=== PATIENT | female | born 1950 | race African-American/Black ===

== ENCOUNTER 2020-03-15 13:23 | Inpatient (IN) | payer MEDICARE, OTHER ==
[~2020-03-15] VITALS: Ht 152.4 cm; Wt 57.6 kg
[2020-03-15] MEDS ORDERED: DONE5TAB34 PO (13:56)
[2020-03-15] MEDS ORDERED: VALP250S4 PO (13:56)
[2020-03-15] MEDS ORDERED: LORA-259 PO (13:56)
[2020-03-15] MEDS ORDERED: DORZ10DR13 EACHEYE (13:56)
[2020-03-15] MEDS ORDERED: ASCO-352 PO (13:56)
[2020-03-15] MEDS ORDERED: FERR325T23 PO (13:56)
[2020-03-15] MEDS ORDERED: ACET-868 PO (13:56)
[2020-03-15] MEDS ORDERED: MULT-24 PO (13:56)
[2020-03-15] MEDS ORDERED: LATA2.5D7 EACHEYE (13:56)
--- NOTE | 2020-03-15 14:12 | NUR ---
Patient alert to name only patient rectal temp 99.9 ,hooked in the monitor ,lab draw ,ekg
[2020-03-15 14:28] LABS: ALANINE AMINOTRANSFERASE 24 U/L (12-78); ALBUMIN 2.3 g/dL (3.4-5.0); ALKALINE PHOSPHATASE 92 U/L (46-116); ASPARTATE AMINOTRANSFERASE 24 U/L (15-37); BILIRUBIN,DIRECT 0.1 mg/dL (0.0-0.2); BILIRUBIN,TOTAL 0.3 mg/dL (0.2-1.0); CARBON DIOXIDE 30 mmol/L (21-32); CHLORIDE 122 mmol/L (98-107); CREATININE 4.3 mg/dL (0.6-1.3); GLUCOSE 197 mg/dL (74-106); POTASSIUM 4.4 mmol/L (3.5-5.1); TOTAL PROTEIN, SERUM 7.7 g/dL (6.4-8.2)
[2020-03-15 14:30] LABS: SODIUM SERUM 165 mmol/L (136-145); UREA NITROGEN, BLOOD 98 mg/dL (7-18)
[2020-03-15 14:32] LABS: BASOPHILS % (AUTO) 0.2 % (0.0-2.0); HEMATOCRIT 41 % (33-45); HEMOGLOBIN 12.9 g/dL (11.5-14.8); LYMPHOCYTES # (AUTO) 2.2 /CMM (0.8-4.8); LYMPHOCYTES % (AUTO) 14.8 % (20.0-44.0); MEAN CORPUSCULAR HGB CONC 31 g/dl (31.0-36.0); MEAN CORPUSCULAR VOLUME 97 fL (82-100); MONOCYTES # (AUTO) 0.8 /CMM (0.1-1.30); MONOCYTES % (AUTO) 5.2 % (2.0-12.0); NEUTROPHILS # (AUTO) 11.8 /CMM (1.8-8.9); NEUTROPHILS % (AUTO) 79.8 % (43.0-81.0); PLATELET COUNT (AUTO) 133 /CMM (150-450); RED BLOOD CELL COUNT(AUTO) 4.28 MIL/uL (4.0-5.2); WHITE BLOOD COUNT (AUTO) 14.8 K/uL (4.3-11.0)
[2020-03-15] MEDS ORDERED: CEFTRIAXONE 1GM BAG (ER ONLY) 50 ML IV ONE (14:59)
[2020-03-15] MEDS ORDERED: IV NS 0.9% 1,000 ML BAG IV ONE (15:00)
[2020-03-15] MEDS ORDERED: CEFTRIAXONE 1GM BAG (ER ONLY) 1 GM/50 ML PIGGYBACK IV ONE (15:00)
--- NOTE | 2020-03-15 15:43 | NUR ---
Covid swab obtained and send to lab
[2020-03-15 16:30] LABS: APPEARANCE,URINE CLEAR (CLEAR); BILIRUBIN,URINE NEGATIVE (NEGATIVE); BLOOD, URINE NEGATIVE Ery/uL (NEGATIVE); COLOR,URINE YELLOW (YELLOW); KETONES,URINE TRACE (NEGATIVE); LEUKOCYTE ESTERASE ,URINE NEGATIVE (NEGATIVE); NITRITE, URINE NEGATIVE (NEGATIVE); PROTEIN,URINE NEGATIVE (NEGATIVE); UGLUCOSE NEGATIVE (NEGATIVE); UROBILINOGEN,URINE 0.2 EU/dL (0.2)
[2020-03-15 16:32] LABS: ALBUMIN 1.9 g/dL (3.4-5.0); BILIRUBIN,DIRECT 0.1 mg/dL (0.0-0.2); BILIRUBIN,TOTAL 0.2 mg/dL (0.2-1.0); TOTAL PROTEIN, SERUM 6.5 g/dL (6.4-8.2)
[2020-03-15 16:37] LABS: BACTERIA,URINE RARE /HPF (None Seen); HYALINE CASTS, URINE Few /LPF (None Seen); MUCUS,URINE Few /LPF (None Seen); RBC,URINE 0-2 /HPF (0-2); SQUAMOUS EPITHELIAL CELL,UR 0-2 /HPF (None Seen); WBC,URINE 0-2 /HPF (0-3)
[2020-03-15 16:38] LABS: URINE AMORPHOUS URATE Moderate /HPF (None Seen)
[2020-03-15] MEDS ORDERED: Z GUARD REMEDY 2 OZ OINT TP PRN (17:30)
[2020-03-15] MEDS ORDERED: HYDROCODONE/APAP 5/325MG TABLET PO PRN (17:30)
[2020-03-15] MEDS ORDERED: ACETAMINOPHEN 325 MG TABLET PO PRN (17:30)
[2020-03-15] MEDS ORDERED: MAG HYDROX/AL HYDROX/SIMETH 30 ML UDC PO PRN (17:30)
[2020-03-15] MEDS ORDERED: ONDANSETRON HCL/PF 4 MG/2 ML VIAL IVP PRN (17:30)
[2020-03-15] MEDS ORDERED: MAGNESIUM HYDROXIDE 30 ML UDC PO PRN (17:30)
--- NOTE | 2020-03-15 17:33 | NUR ---
Patient alert to name only non able to say yes ,total care vitals taken and filesd
--- NOTE | 2020-03-15 19:58 | NUR ---
PT NOTED ASLEEP, TRIED SPEAKING TO PT. SHE STATED HER NAME BUT DID NOT WANT TO SPEAK.
--- NOTE | 2020-03-15 20:03 | NUR ---
ROOM ASSIGNMENT: [id number]- TELE
--- NOTE | 2020-03-15 20:15 | NUR ---
CALLED TO GIVE REPORT. WILL CALL BACK LATER.
--- NOTE | 2020-03-15 20:27 | NUR ---
CALLED FOR REPORT AGAIN, BED UNAVAILABLE.
--- NOTE | 2020-03-15 21:05 | NUR ---
PT ASLEEP, NOTED SAT 92% RA. PLACED ON 2L NC SAT 97%
--- NOTE | 2020-03-15 22:38 | NUR ---
REPORT GIVEN TO JC MCGINNIS FOR SELINA
--- NOTE | 2020-03-15 23:26 | NUR ---
AWAITING FOR BED TO BE CLEANED IN ORDER TO TRANSFER PT.
--- NOTE | 2020-03-16 00:34 | NUR ---
PT TRANSFERED PER ACLS PROTOCOL.
--- NOTE | 2020-03-16 00:45 | NUR ---
ROCKET TEST FIRE WORKER NOTES RECEIVED PT VIA S3Bubble. A/O X1. ON RA, NO SOB/ ACUTE RESPIRATORY DISTRESS NOTED. DENIES ANY PAIN AT THE MOMENT. IV IN L AC# 18G IS PATENT AND INTACT. PT ORIENTED TO ROOM. BED IS IN LOWEST LOCKED POSITION WITH SIDE RAILS UP X3, SEMI FOWLERS. CALL LIGHT IS WITHIN REACH. WILL CONTINUE TO MONITOR. PATIENT. Addendum: 03/16/20 at 0259 by JC GIBSON RN VITAL SIGNS UPON ADMISSION BP 110/ 76 HR 107 RR 18 TEMP 98.2 O2 SAT 92% (PT HAS HX OF COPD)
[2020-03-16] MEDS: IV 1/2NS 1000 ML 1,000 ML IV SCH ×2 (03:45→03:46)
[2020-03-16 04:00] VITALS: BP 106/62
--- NOTE | 2020-03-16 06:45 | NUR ---
NOZZLE TENDER CLOSE NOTES PATIENT IS LAYING IN BED. A/O X1-2. ON RA, NO SOB/ ACUTE RESPIRATORY DISTRESS NOTED. TELE MONITOR READING ST, 107. IV IN L AC #18G IS PATENT AND INTACT RUNNING 1/2 NS @ 100 MLS/HR. VELASQUEZ CATHETER IN PLACE, 350 ML OUTPUT. APPEARS COMFORTABLE/ NO COMPLAINTS OF PAIN AT THE MOMENT. BED IS IN LOWEST LOCKED POSITION WITH SIDE RAILS UP X3, SEMI FOWLERS. CALL LIGHT IS WITHIN REACH. WILL ENDORSE TO AM NURSE.
[2020-03-16 08:00] VITALS: BP 106/80
[2020-03-16] MEDS: CEFTRIAXONE 1 G in IV D5W 50 ML IV SCH (09:06)
[2020-03-16 09:25] LABS: CARBON DIOXIDE 26 mmol/L (21-32); CREATININE 2.6 mg/dL (0.6-1.3); GLUCOSE 163 mg/dL (74-106); MAGNESIUM 3.2 mg/dL (1.8-2.4); PHOSPHORUS 3.3 mg/dL (2.5-4.9); POTASSIUM 4.5 mmol/L (3.5-5.1)
[2020-03-16 09:30] LABS: BASOPHILS % (AUTO) 0.1 % (0.0-2.0); EOSINOPHILS % (AUTO) 0.1 % (0.0-6.0); HEMATOCRIT 36 % (33-45); HEMOGLOBIN 10.9 g/dL (11.5-14.8); LYMPHOCYTES # (AUTO) 1.1 /CMM (0.8-4.8); LYMPHOCYTES % (AUTO) 9.9 % (20.0-44.0); MEAN CORPUSCULAR HGB CONC 30 g/dl (31.0-36.0); MEAN CORPUSCULAR VOLUME 101 fL (82-100); MONOCYTES # (AUTO) 0.5 /CMM (0.1-1.30); MONOCYTES % (AUTO) 4.7 % (2.0-12.0); NEUTROPHILS # (AUTO) 9.2 /CMM (1.8-8.9); NEUTROPHILS % (AUTO) 85.2 % (43.0-81.0); PLATELET COUNT (AUTO) 124 /CMM (150-450); RED BLOOD CELL COUNT(AUTO) 3.54 MIL/uL (4.0-5.2); WHITE BLOOD COUNT (AUTO) 10.8 K/uL (4.3-11.0)
[2020-03-16] MEDS ORDERED: IV 1/2NS 1000 ML 1,000 ML IV PRN (09:30)
[2020-03-16 09:35] LABS: CHLORIDE 128 mmol/L (98-107); SODIUM SERUM 165 mmol/L (136-145); UREA NITROGEN, BLOOD 81 mg/dL (7-18)
--- NOTE | 2020-03-16 10:10 | NUR ---
RN NOTE DR GARCIA IS MADE AWARE OF PATIENT`S SODIUM LEVEL OF 165 AND THAT THE PATIENT IS ON 0.45 NS AT 100ML/HR. PER MD NO NEW ORDERS.
[2020-03-16] MEDS: TIMOLOL MAL/DORZOLAM HCL OPHTH 10 ML BOTTLE EACHEYE SCH ×2 (10:15→17:48)
[2020-03-16] MEDS: LATANOPROST EYE DROP 0.005% 2.5 ML BOTTLE EACHEYE SCH ×2 (10:15→21:40)
[2020-03-16] MEDS: VALPROIC ACID 250 MG/5 ML UDC PO SCH (10:16)
--- NOTE | 2020-03-16 12:06 | NUR ---
RN NOTE DR GARCIA IS MADE AWARE OF CL LEVEL OF 128, BUN 81, CREA 2.6 AND MG 3.2. PER MD NO NEW ORDERS. ALSO, PER MD NEPHROLOGY IS ON THE CASE.
[2020-03-16] MEDS: IV D5W 1,000 ML IV SCH ×2 (14:18→23:31)
--- NOTE | 2020-03-16 18:52 | NUR ---
RN NOTE THE PATIENT IS ALERT AND ORIENTED TO SELF. MUMBLES WORDS. THE PATIENT IS IN ROOM AT AND 96%. RESPIRATION REGULAR AND UNLABORED. NO MANIFESTATION OF DISTRESS NOTED. LAC G 18 PATENT AND D5W INFUSING AT 100ML/HR. NO S/S INFILTRATION NOTED. BED LOW AND LOCKED. SIDE RAILS UP X3. CALL LIGHT WITHIN REACH. WILL ENDORSE TO SUPERVISOR HEAT TREATING.
--- NOTE | 2020-03-16 19:30 | NUR ---
POLISHER IMPLANT OPENING NOTES RECEIVED PATIENT IN BED ALERT AND ORIENTED X 1. BREATHING REGULAR AND UNLABORED ON ROOM AIR. LEFT AC G18 IV LINE INTACT AND PATENT, INFUSING WELL WITH NO BLEEDING OR S/S OF INFILTRATION NOTED. ON CARDIAC MONITORING WITH NSR AT 88bpm. NO S/S OF PAIN/DISCOMFORT NOTED AT THIS TIME. BED LOW AND LOCKED ON SEMI FOWLERS POSITION, CALL LIGHT IN REACH. BED ALARM ON. WILL CONTINUE TO MONITOR.
[2020-03-16 20:00] VITALS: BP 104/57
--- NOTE | 2020-03-16 20:00 | NUR ---
CORPORATE JOB TITLES NOTES SPO2 90% ON ROOM AIR, PLACED ON OXYGEN AT 2L/MIN VIA NASAL CANNULA. SPO2 INCREASED TO 97%
[2020-03-17] VITALS: BP 101/54
[2020-03-17 04:00] VITALS: BP 102/63
--- NOTE | 2020-03-17 05:40 | NUR ---
SHIFT MGR NOTES COVID 19 RESULT NEGATIVE, TRANSFERRED TO MS-TELE FLOOR ROOM 326-2 VIA ACLS. REMAINED ALERT AND ORIENTED X 1-2. AFEBRILE WITH NO S/S OF DISTRESS OBSERVED. REPORT GIVEN TO LESLIE MCGINNIS FOR CONTINUITY OF CARE.
--- NOTE | 2020-03-17 05:50 | NUR ---
TELE/RN OPENING NOTES PATIENT TRANSFERRED FROM MS 2. PATIENT SUSTAINED NO INJURIES DURING TRANSFER. PATIENT IS ALERT AND ORIENTED X 1. PATIENT IS ON 2L OF OXYGEN TOLERATING WELL. NO SIGNS OF SOB OR RESPIRATORY DISTRESS NOTED. BREATHING IS EVEN AND UNLABORED. PATIENT SKIN IN INTACT. PATIENT HAS LEFT AC #18G RUNNING D5W AT 100 CC/HR. PATIENT HAS VELASQUEZ CATH IN PLACE DRAINED OUR 800 CC. PATIENT IS STABLE. PATIENT IS PLACED IN COMFORTABLE POSITION. SAFETY MEASURES ARE IN PLACE, BED IS LOCKED AND PLACED IN THE LOW POSITION, SIDE RAILS UP X 3. CALL LIGHT IS WITHIN REACH. WILL CONTINUE TO MONITOR.
--- NOTE | 2020-03-17 06:55 | NUR ---
TELE/RN CLOSING NOTES PATIENT RESTING IN BED. PATIENT IS ALERT AND ORIENTED X 1-2. PATIENT IS ON 2L OF OXYGEN TOLERATING WELL. NO SIGNS OF SOB OR RESPIRATORY DISTRESS NOTED. BREATHING IS EVEN AND UNLABORED. PATIENT HAS LEFT AC #18G RUNNING D5W AT 100 CC/HR. PATIENT HAS VELASQUEZ CATH IN PLACE DRAINED OUT 800 CC. PATIENT NEEDS HAVE BEEN MET. SAFETY MEASURES ARE IN PLACE, BED IS LOCKED AND PLACED IN THE LOW POSITION, SIDE RAILS UP X 3. CALL LIGHT IS WITHIN REACH. WILL ENDORSE TO DAY SHIFT.
[2020-03-17 07:45] LABS: BASOPHILS % (AUTO) 0.2 % (0.0-2.0); EOSINOPHILS % (AUTO) 0.3 % (0.0-6.0); HEMATOCRIT 32 % (33-45); HEMOGLOBIN 10.1 g/dL (11.5-14.8); LYMPHOCYTES # (AUTO) 1.5 /CMM (0.8-4.8); LYMPHOCYTES % (AUTO) 13.6 % (20.0-44.0); MEAN CORPUSCULAR HGB CONC 31 g/dl (31.0-36.0); MEAN CORPUSCULAR VOLUME 96 fL (82-100); MONOCYTES # (AUTO) 0.7 /CMM (0.1-1.30); NEUTROPHILS # (AUTO) 8.8 /CMM (1.8-8.9); NEUTROPHILS % (AUTO) 79.9 % (43.0-81.0); PLATELET COUNT (AUTO) 123 /CMM (150-450); RED BLOOD CELL COUNT(AUTO) 3.37 MIL/uL (4.0-5.2)
[2020-03-17 08:00] VITALS: BP 121/66
[2020-03-17] MEDS: CEFTRIAXONE 1 G in IV D5W 50 ML IV SCH (08:16)
[2020-03-17] MEDS: VALPROIC ACID 250 MG/5 ML UDC PO SCH (08:16)
[2020-03-17] MEDS: TIMOLOL MAL/DORZOLAM HCL OPHTH 10 ML BOTTLE EACHEYE SCH ×2 (08:16→17:00)
[2020-03-17] MEDS: IV D5W 1,000 ML IV SCH (08:17)
[2020-03-17 10:22] LABS: CALCIUM, SERUM 8.9 mg/dL (8.5-10.1); CARBON DIOXIDE 25 mmol/L (21-32); CREATININE 2.1 mg/dL (0.6-1.3); GLUCOSE 243 mg/dL (74-106); MAGNESIUM 3.1 mg/dL (1.8-2.4); PHOSPHORUS 1.9 mg/dL (2.5-4.9); UREA NITROGEN, BLOOD 57 mg/dL (7-18)
[2020-03-17 11:14] LABS: CHLORIDE 129 mmol/L (98-107); SODIUM SERUM 163 mmol/L (136-145)
[2020-03-17 16:00] VITALS: BP 111/57
[2020-03-17] MEDS ORDERED: NEUTRA PHOS 1 POWD.PACKET PO ONE (16:00)
[2020-03-17] MEDS: POTASSIUM PHOSPHATE MM 7.5 MMOL in IV NS 0.9% 100 ML IV SCH ×2 (19:57→23:27)
[2020-03-17] MEDS: IV D5W 1,000 ML IV PRN (19:58)
--- NOTE | 2020-03-17 20:39 | NUR ---
MS/TELE/RN DURING INITIAL SHIFT ROUNDING, PATIENT WAS AWAKE, ALERT, ORIENTED, COMFORTABLE, NO C/O PAIN, NO DISTRESS NOTED, CALL LIGHT IN REACH, WILL MONITOR.
[2020-03-17 20:56] VITALS: BP 122/60
[2020-03-17] MEDS: LATANOPROST EYE DROP 0.005% 2.5 ML BOTTLE EACHEYE SCH (23:27)
[2020-03-18 00:18] VITALS: BP 137/73
[2020-03-18 04:51] VITALS: BP 127/71
[2020-03-18] MEDS: IV D5W 1,000 ML IV PRN ×2 (05:57→17:34)
--- NOTE | 2020-03-18 06:53 | NUR ---
MS/TELE/RN PATIENT IS STILL SLEEPING, APPEAR COMFORTABLE, NO SIGNS OF DISTRESS NOTED, GOOD SLEEP NOTED THE WHOLE SHIFT, ALL NEEDS ATTENDED AT THIS TIME, WILL CONTINUE TO MONITOR.
--- NOTE | 2020-03-18 07:15 | NUR ---
Patient oriented to name only. IV line intact and patent , INfusinf D5W at rate of 100 ml/hr. Safety precautions in palce, call light within reach. Bed alarm activated. will continue to monitor
[2020-03-18 08:00] VITALS: BP 128/72
[2020-03-18 08:38] LABS: BASOPHILS % (AUTO) 0.1 % (0.0-2.0); EOSINOPHILS % (AUTO) 0.4 % (0.0-6.0); HEMATOCRIT 30 % (33-45); HEMOGLOBIN 9.7 g/dL (11.5-14.8); LYMPHOCYTES # (AUTO) 1.5 /CMM (0.8-4.8); MEAN CORPUSCULAR HGB CONC 32 g/dl (31.0-36.0); MEAN CORPUSCULAR VOLUME 95 fL (82-100); MONOCYTES # (AUTO) 0.5 /CMM (0.1-1.30); MONOCYTES % (AUTO) 4.7 % (2.0-12.0); NEUTROPHILS # (AUTO) 9.3 /CMM (1.8-8.9); NEUTROPHILS % (AUTO) 81.8 % (43.0-81.0); PLATELET COUNT (AUTO) 118 /CMM (150-450); RED BLOOD CELL COUNT(AUTO) 3.16 MIL/uL (4.0-5.2); WHITE BLOOD COUNT (AUTO) 11.3 K/uL (4.3-11.0)
[2020-03-18] MEDS: TIMOLOL MAL/DORZOLAM HCL OPHTH 10 ML BOTTLE EACHEYE SCH ×2 (09:18→17:34)
[2020-03-18] MEDS: VALPROIC ACID 250 MG/5 ML UDC PO SCH (09:18)
[2020-03-18] MEDS: CEFTRIAXONE 1 G in IV D5W 50 ML IV SCH (09:18)
[2020-03-18 09:45] LABS: CALCIUM, SERUM 8.7 mg/dL (8.5-10.1); CARBON DIOXIDE 24 mmol/L (21-32); CHLORIDE 121 mmol/L (98-107); CREATININE 1.6 mg/dL (0.6-1.3); GLUCOSE 207 mg/dL (74-106); MAGNESIUM 2.7 mg/dL (1.8-2.4); PHOSPHORUS 2.5 mg/dL (2.5-4.9); POTASSIUM 3.8 mmol/L (3.5-5.1); UREA NITROGEN, BLOOD 33 mg/dL (7-18)
[2020-03-18 09:52] LABS: SODIUM SERUM 157 mmol/L (136-145)
--- NOTE | 2020-03-18 09:59 | NUR ---
Received call from lab ; critical sodium level of 157. trending down
[2020-03-18 16:00] VITALS: BP 120/64
--- NOTE | 2020-03-18 18:57 | NUR ---
PATIENT IS ALERT AND ORIENTED X 1. PATIENT IS ON 2L OF OXYGEN TOLERATING WELL. NO SIGNS OF SOB OR RESPIRATORY DISTRESS NOTED. BREATHING IS EVEN AND UNLABORED. PATIENT SKIN IS INTACT. PATIENT HAS RIGHT AC #18G RUNNING D5W AT 100 CC/HR. PATIENT HAS VERY POOR ORAL INTAKE. PATIENT HAS VELASQUEZ CATH IN PLACE DRAINED 550 CC. SAFETY MEASURES ARE IN PLACE, CALL LIGHT WITHIN REACH. ALL NEEDS ATTENDED, PATIENT KEPT COMFORTABLE. WILL ENDORSE TO NEXT SHIFT FOR SELINA
--- NOTE | 2020-03-18 19:34 | NUR ---
RN OPENING NOTES PATIENT RECEIVED RESTING IN BED A/O X 1. ON 2L OF O2 WITH BREATHING EVEN AND UNLABORED, NO SOB NOTED. NO SIGNS OF ACUTE DISTRESS. NO SIGNS OF PAIN OR DISCOMFORT- NO FACIAL GRIMACING NOTED. TELE MONITOR READING SR. RON MARCANO NOTED AND IN PLACE. IV LOCATED ON RFA #18 RUNNING D5W @ 100 ML/HR. SAFETY PRECAUTIONS IN PLACE WITH BED IN LOWEST POSITION, CALL LIGHT WITHIN REACH, BREAKS ON, BED ALARM ON, AND SIDE RAILS UP. WILL CONTINUE TO MONITOR THROUGHOUT THE NIGHT.
[2020-03-18 20:00] VITALS: BP 103/42
[2020-03-18] MEDS: LATANOPROST EYE DROP 0.005% 2.5 ML BOTTLE EACHEYE SCH (21:08)
[2020-03-19] VITALS: BP 116/71
[2020-03-19 04:00] VITALS: BP 116/59
--- NOTE | 2020-03-19 07:30 | NUR ---
RN CLOSING NOTES PATIENT RESTING IN BED A/O X 1. ON 2L OF O2 WITH BREATHING EVEN AND UNLABORED, NO SOB NOTED. NO SIGNS OF ACUTE DISTRESS. NO SIGNS OF PAIN OR DISCOMFORT- NO FACIAL GRIMACING NOTED. TELE MONITOR READING SR. RON MARCANO NOTED AND IN PLACE. IV LOCATED ON RFA #18 RUNNING D5W @ 100 ML/HR. SAFETY PRECAUTIONS IN PLACE WITH BED IN LOWEST POSITION, CALL LIGHT WITHIN REACH, BREAKS ON, BED ALARM ON, AND SIDE RAILS UP. ALL NEEDS ATTENDED TO. PATIENT KEPT CLEAN AND DRY. WILL ENDORSE TO ONCOMING SHIFT ABOUT SELINA.
--- NOTE | 2020-03-19 07:30 | NUR ---
PT RESTING IN BED A/O X 1. ON 2L OF O2 WITH BREATHING EVEN AND UNLABORED, NO SOB NOTED. NO SIGNS OF ACUTE DISTRESS. NO SIGNS OF PAIN OR DISCOMFORT- NO FACIAL GRIMACING NOTED. TELE MONITOR READING SR. VELASQUEZ CATH IN PLACE. IV LOCATED ON RFA #18 RUNNING D5W @ 100 ML/HR. SAFETY PRECAUTIONS IN PLACE WITH BED IN LOWEST POSITION, CALL LIGHT WITHIN REACH, BREAKS ON, BED ALARM ON, AND SIDE RAILS UP. WILL CONTINUE TO MONITOR THROUGHOUT THE SHIFT.
[2020-03-19 07:57] LABS: CALCIUM, SERUM 8.7 mg/dL (8.5-10.1); CARBON DIOXIDE 26 mmol/L (21-32); CHLORIDE 115 mmol/L (98-107); CREATININE 1.4 mg/dL (0.6-1.3); GLUCOSE 204 mg/dL (74-106); MAGNESIUM 2.4 mg/dL (1.8-2.4); PHOSPHORUS 2.8 mg/dL (2.5-4.9); POTASSIUM 4.1 mmol/L (3.5-5.1); SODIUM SERUM 149 mmol/L (136-145); UREA NITROGEN, BLOOD 23 mg/dL (7-18)
[2020-03-19 08:00] VITALS: BP 140/67
[2020-03-19 08:23] LABS: EOSINOPHILS % (AUTO) 0.7 % (0.0-6.0); HEMATOCRIT 31 % (33-45); HEMOGLOBIN 9.9 g/dL (11.5-14.8); LYMPHOCYTES # (AUTO) 1.3 /CMM (0.8-4.8); LYMPHOCYTES % (AUTO) 12.1 % (20.0-44.0); MEAN CORPUSCULAR HGB CONC 32 g/dl (31.0-36.0); MEAN CORPUSCULAR VOLUME 94 fL (82-100); MONOCYTES # (AUTO) 0.6 /CMM (0.1-1.30); MONOCYTES % (AUTO) 5.9 % (2.0-12.0); NEUTROPHILS # (AUTO) 8.9 /CMM (1.8-8.9); NEUTROPHILS % (AUTO) 81.3 % (43.0-81.0); PLATELET COUNT (AUTO) 132 /CMM (150-450); RED BLOOD CELL COUNT(AUTO) 3.25 MIL/uL (4.0-5.2); WHITE BLOOD COUNT (AUTO) 10.9 K/uL (4.3-11.0)
[2020-03-19] MEDS: TIMOLOL MAL/DORZOLAM HCL OPHTH 10 ML BOTTLE EACHEYE SCH ×2 (09:00→16:57)
[2020-03-19] MEDS: VALPROIC ACID 250 MG/5 ML UDC PO SCH (09:42)
--- NOTE | 2020-03-19 12:00 | NUR ---
POOR ORAL INTAKE; PT ENCOURAGED TO INCREASE FLUID INTAKE.
[2020-03-19] MEDS: IV D5W 1,000 ML IV PRN (14:11)
--- NOTE | 2020-03-19 15:49 | NUR ---
MS/RN Nurse change Report obtained from outgoing nurse.
[2020-03-19 15:51] VITALS: BP 140/67
--- NOTE | 2020-03-19 16:15 | NUR ---
MS/RN New heplock New heplock inserted - 22g left hand.
--- NOTE | 2020-03-19 17:00 | NUR ---
MS/RN Medications Evening medications administered as ordered.
--- NOTE | 2020-03-19 18:05 | NUR ---
MS/RN End note Patient remains in stable, no changes as to plan of care. Will endorse to warehouse supervisor 3rd shift.
--- NOTE | 2020-03-19 19:38 | NUR ---
SERVICE DELIVERY MANAGEMENT CONSULTANT NOTES RECEIVED PATIENT AWAKE ALERT ORIENTED X1, CALM RESTING COMFORTABLY, SAFETY MEASURES IN PLACE, IV ACCESS INTACT AND PATENT, ON HER LEFT HAND G#22 WITH D5W AT 100 ML/HR.VELASQUEZ CATHETER INTACT DRAINING YELLOW URINE OUTPUT. CALL LIGHT WITH IN EASY REACH. ALL NEEDS ANTICIPATED. WILL CONTINUE TO MONITOR ACCORDINGLY.
[2020-03-19 20:00] VITALS: BP 130/58
[2020-03-19 20:15] VITALS: BP 130/58
[2020-03-19] MEDS: LATANOPROST EYE DROP 0.005% 2.5 ML BOTTLE EACHEYE SCH (21:15)
[2020-03-20] VITALS: BP 128/65
[2020-03-20 04:00] VITALS: BP 130/66
[2020-03-20] MEDS: IV D5W 1,000 ML IV PRN (05:32)
--- NOTE | 2020-03-20 07:10 | NUR ---
PATENT COUNSEL NOTES RECEIVED PATIENT IN BED, ALERT AND AWAKE ORIENTED X1. HOB ELEVATED. ON O2 AT 2L/MIN VIA NC BUTCH WELL. NO SOB OBSERVED. DENIES ANY C/O PAIN NOR DISCOMFORT AT THIS TIME. ON TELE MONITORING SR : 91. LEFT HAND #22 INFUSING D5W AT 100ML/HR BUTCH WELL. VELASQUEZ CATHETER INTACT AND PATENT DRAINING URINE VIA BEDSIDE. BED IN LOWEST POSITION, LOCKED. BED ALARM ON. CALL LIGHT WITHIN REACH. FREQUENT VISUAL CHECK DONE.
--- NOTE | 2020-03-20 07:11 | NUR ---
TRIMMING INSPECTOR NOTES ALL NEEDS ATTENDED AND MET, ABLE TO REST AND SLEPT AT INTERVALS. IV ACCESS INTACT AND PATENT, REPOSITIONED FOR COMFORT. VELASQUEZ CATHETER INTACT AND PATENT DRAINING TO A YELLOW URINE OUTPUT. TELE MONITOR READS SINUS 80S TO 100s. KEPT CLEAN WARM DRY AND COMFORTABLE. ENDORSED TO AM NURSE FOR CONTINUITY OF CARE.
[2020-03-20 07:13] LABS: BASOPHILS % (AUTO) 0.1 % (0.0-2.0); EOSINOPHILS % (AUTO) 0.7 % (0.0-6.0); HEMATOCRIT 34 % (33-45); HEMOGLOBIN 10.8 g/dL (11.5-14.8); LYMPHOCYTES # (AUTO) 1.1 /CMM (0.8-4.8); LYMPHOCYTES % (AUTO) 12.4 % (20.0-44.0); MEAN CORPUSCULAR HGB CONC 31 g/dl (31.0-36.0); MEAN CORPUSCULAR VOLUME 96 fL (82-100); MONOCYTES # (AUTO) 0.5 /CMM (0.1-1.30); MONOCYTES % (AUTO) 5.2 % (2.0-12.0); NEUTROPHILS # (AUTO) 7.1 /CMM (1.8-8.9); NEUTROPHILS % (AUTO) 81.6 % (43.0-81.0); PLATELET COUNT (AUTO) 155 /CMM (150-450); RED BLOOD CELL COUNT(AUTO) 3.59 MIL/uL (4.0-5.2); WHITE BLOOD COUNT (AUTO) 8.7 K/uL (4.3-11.0)
[2020-03-20 07:42] LABS: CARBON DIOXIDE 25 mmol/L (21-32); CHLORIDE 112 mmol/L (98-107); CREATININE 1.2 mg/dL (0.6-1.3); GLUCOSE 183 mg/dL (74-106); SODIUM SERUM 146 mmol/L (136-145); UREA NITROGEN, BLOOD 21 mg/dL (7-18)
[2020-03-20] MEDS: TIMOLOL MAL/DORZOLAM HCL OPHTH 10 ML BOTTLE EACHEYE SCH (09:51)
[2020-03-20] MEDS: VALPROIC ACID 250 MG/5 ML UDC PO SCH (09:51)
--- NOTE | 2020-03-20 16:00 | NUR ---
PRODUCER ARBORIST MANAGER NOTES PATIENT FOR DISCHARGED, DISCHARGE REPORT AND INSTRUCTIONS GIVEN TO ARRON AT [facility] ([facility]) NO S/S OF RESPIRATORY DISTRESS. DENIES ANY C/O PAIN NOR DISCOMFORT AT THIS TIME. IV ACCESS REMOVED WITH CATHETER TIP INTACT, VELASQUEZ CATHETER REMOVED BUTCH WELL WITH ADEQUATE URINE OUTPUT OBSERVED AFTER VELASQUEZ CATHETER REMOVAL. DISCHARGE PACKET GIVEN TO EMT. PATIENT PICKED UP BY 2 EMT [facility] AND LEFT VIA GURNEY IN STABLE CONDITION. PATIENT HAS NO BELONGINGS.
--- NOTE | 2020-03-20 19:20 | NUR ---
PIANO SOUNDING BOARD MATCHER NOTES PATIENT FOR DISCHARGED, DISCHARGE REPORT AND INSTRUCTIONS GIVEN TO ARRON AT [facility] ([facility]) NO S/S OF RESPIRATORY DISTRESS. DENIES ANY C/O PAIN NOR DISCOMFORT AT THIS TIME. IV ACCESS REMOVED WITH CATHETER TIP INTACT, VELASQUEZ CATHETER REMOVED BUTCH WELL WITH ADEQUATE URINE OUTPUT OBSERVED AFTER VELASQUEZ CATHETER REMOVAL. DISCHARGE PACKET GIVEN TO EMT. PATIENT PICKED UP BY 2 EMT [facility] AND LEFT VIA GURNEY IN STABLE CONDITION. PATIENT HAS NO BELONGINGS. Addendum: 03/20/20 at 1955 by CADENCE HERNANDEZ RN WRONG DOCUMENTATION
== END 2020-03-20 16:00 | DRG 640 ==
LOC: ER 13:30 → TELE2 20:07 → TELE 03-17 05:35 → MED 03-20 11:40
PROVIDERS: ADMIT Internal Medicine; ATTEND Internal Medicine
DX: E87.0 Hyperosmolality and hypernatremia (principal); N17.0 Acute kidney failure with tubular necrosis; E43 Unspecified severe protein-calorie malnutrition; G92 Toxic encephalopathy; E87.2 Acidosis; D50.9 Iron deficiency anemia, unspecified; F03.90 Unspecified dementia, unspecified severity, without behavioral disturbance, psychotic disturbance, mood disturbance, and anxiety; E83.39 Other disorders of phosphorus metabolism; D63.8 Anemia in other chronic diseases classified elsewhere; M19.90 Unspecified osteoarthritis, unspecified site; E86.1 Hypovolemia; E88.09 Other disorders of plasma-protein metabolism, not elsewhere classified; K21.9 Gastro-esophageal reflux disease without esophagitis; Z68.24 Body mass index [BMI] 24.0-24.9, adult; J44.9 Chronic obstructive pulmonary disease, unspecified
CPT/HCPCS: 36415; 70450-TC; 71045-TC; 76770-TC; 80048-TC; 80076-TC; 81000-TC; 83605-TC; 83735-TC; 83880; 84100-TC; 84484-TC; 85025-TC; 85730-TC; 87040-TC; 87081-TC; 87086-TC; C9803-CS; G0378; J0696; J3490; J7030; J7042; J7060; J7070; U0003-CS

== ENCOUNTER 2020-03-26 19:40 | Inpatient (IN) | payer MEDICARE, OTHER ==
[~2020-03-26] VITALS: Ht 152.4 cm; Wt 59.0 kg
[~2020-03-26 19:40] MED LIST: ACET-868 PO; ASCO-352 PO; DONE5TAB34 PO; DORZ10DR13 EACHEYE; FERR325T23 PO; LATA2.5D7 EACHEYE; LORA-259 PO; MULT-24 PO; VALP250S4 PO
--- NOTE | 2020-03-26 19:45 | NUR ---
PT BIBEMS FROM FACILITY C/O GENERALIZED WEAKNESS, AMS, AND BLE EDEMA. PT NOT ANSWERING QUESTIONS BUT RESPONSIVE TO PAINFUL STIMULI, VSS, RESPIRATIONS EVEN AND UNLABORED ON RA W/ NAD NOTED. PT CONNECTED TO THE MONITOR AND POX
[2020-03-26] MEDS ORDERED: ONDANSETRON HCL/PF 4 MG/2 ML VIAL IVP PRN (20:00)
[2020-03-26] MEDS ORDERED: HYDROCODONE/APAP 5/325MG TABLET PO PRN (20:00)
[2020-03-26] MEDS ORDERED: Z GUARD REMEDY 2 OZ OINT TP PRN (20:00)
[2020-03-26] MEDS ORDERED: MAG HYDROX/AL HYDROX/SIMETH 30 ML UDC PO PRN (20:00)
[2020-03-26] MEDS ORDERED: ACETAMINOPHEN 325 MG TABLET PO PRN (20:00)
[2020-03-26] MEDS ORDERED: MAGNESIUM HYDROXIDE 30 ML UDC PO PRN (20:00)
[2020-03-26] MEDS ORDERED: IV NS 0.9% 1,000 ML BAG IV ONE (20:00)
[2020-03-26 21:00] LABS: BASOPHILS % (AUTO) 0.2 % (0.0-2.0); EOSINOPHILS % (AUTO) 0.4 % (0.0-6.0); HEMATOCRIT 30 % (33-45); HEMOGLOBIN 9.1 g/dL (11.5-14.8); LYMPHOCYTES # (AUTO) 2.8 /CMM (0.8-4.8); LYMPHOCYTES % (AUTO) 16.8 % (20.0-44.0); MEAN CORPUSCULAR HGB CONC 30 g/dl (31.0-36.0); MEAN CORPUSCULAR VOLUME 98 fL (82-100); MONOCYTES % (AUTO) 5.9 % (2.0-12.0); NEUTROPHILS # (AUTO) 12.7 /CMM (1.8-8.9); NEUTROPHILS % (AUTO) 76.7 % (43.0-81.0); PLATELET COUNT (AUTO) 109 /CMM (150-450); RED BLOOD CELL COUNT(AUTO) 3.05 MIL/uL (4.0-5.2); WHITE BLOOD COUNT (AUTO) 16.5 K/uL (4.3-11.0)
[2020-03-26 21:01] LABS: CALCIUM, SERUM 9.3 mg/dL (8.5-10.1); CARBON DIOXIDE 23 mmol/L (21-32); CHLORIDE 122 mmol/L (98-107); CREATININE 2.9 mg/dL (0.6-1.3); GLUCOSE 179 mg/dL (74-106); UREA NITROGEN, BLOOD 79 mg/dL (7-18)
[2020-03-26 21:03] LABS: SODIUM SERUM 156 mmol/L (136-145)
--- NOTE | 2020-03-26 21:03 | NUR ---
URINE COLLECTED AND SENT TO LAB
[2020-03-26 21:08] LABS: ALANINE AMINOTRANSFERASE 26 U/L (12-78); ALBUMIN 1.9 g/dL (3.4-5.0); ALKALINE PHOSPHATASE 83 U/L (46-116); ASPARTATE AMINOTRANSFERASE 29 U/L (15-37); BILIRUBIN,DIRECT 0.1 mg/dL (0.0-0.2); BILIRUBIN,TOTAL 0.3 mg/dL (0.2-1.0); TOTAL PROTEIN, SERUM 6.8 g/dL (6.4-8.2)
--- NOTE | 2020-03-26 21:24 | NUR ---
BED ASSIGNMENT 207
[2020-03-26 21:27] LABS: APPEARANCE,URINE CLEAR (CLEAR); BILIRUBIN,URINE NEGATIVE (NEGATIVE); BLOOD, URINE NEGATIVE Ery/uL (NEGATIVE); COLOR,URINE YELLOW (YELLOW); KETONES,URINE NEGATIVE (NEGATIVE); LEUKOCYTE ESTERASE ,URINE NEGATIVE (NEGATIVE); NITRITE, URINE NEGATIVE (NEGATIVE); PH,URINE 5.5 (5.0-8.0); PROTEIN,URINE NEGATIVE (NEGATIVE); UGLUCOSE NEGATIVE (NEGATIVE); UROBILINOGEN,URINE 0.2 EU/dL (0.2)
--- NOTE | 2020-03-26 21:32 | NUR ---
CALLED TO GIVE REPORT, NO ANSWER
[2020-03-26] MEDS ORDERED: LATANOPROST EYE DROP 0.005% 2.5 ML BOTTLE ONE (22:28)
[2020-03-26 22:30] VITALS: BP 121/67
--- NOTE | 2020-03-26 22:30 | NUR ---
RETAIL SUPERVISORAD OPERATIONS SPECIALIST NOTE RECEIVED PATIENT VIA GURNEY. TRANSFERRED TO BED. PATIENT IS NONVERBAL, OPENS EYES TO NAME. ON OXYGEN 2L/MIN VIA NASAL CANNULA. RESPIRATIONS ARE EVEN AND UNLABORED. NO S/S SOB NOTED. NO S/S PAIN AT THIS TIME ONLY TO TOUCH. EXTERNAL TELE MONITOR READS SINUS RHYTHM TO SINUS TACH HR 99- 102. IN NO APPARENT DISTRESS. IV ACCESS IN L WRIST #22, DOES NOT FLUSH WILL INSERT NEW LINE. INITIAL PHYSICAL ASSESSMENT COMPLETED AT THIS TIME. SKIN ASSESSMENT COMPLETED, PICTURES TAKEN AND PLACED IN CHART. ASSEMBLER HYDRAULIC BACKHOE OBTAINED VITAL SIGNS. BELONGINGS LIST COMPLETED. BED IS LOW AND LOCKED, HOB ELEVATED IN SEMI FOWLERS, SIDE RAILS UP X3. CALL LIGHT WITHIN REACH. WILL CONTINUE TO MONITOR.
[2020-03-26] MEDS: LATANOPROST EYE DROP 0.005% 2.5 ML BOTTLE EACHEYE SCH (23:02)
[2020-03-26] MEDS: IV D5/0.45 NACL 1,000 ML IV SCH (23:02)
[2020-03-26] MEDS: ENOXAPARIN SODIUM 30 MG/0.3 ML DISP.SYRIN SQ SCH (23:02)
[2020-03-27] VITALS (9 sets, daily range): BP systolic 105–129; BP diastolic 62–76
[2020-03-27] MEDS: IV D5/0.45 NACL 1,000 ML IV SCH ×2 (06:13→16:57)
--- NOTE | 2020-03-27 06:26 | NUR ---
FIRE PREVENTION ENGINEER CLOSING NOTE PATIENT RESTING IN BED. NONVERBAL. REMAINS ON OXYGEN 2L/MIN VIA NASAL CANNULA. NO RESP DISTRESS. NO S/S THROUGHOUT SHIFT, ONLY WHEN TURNING. EXTERNAL TELE MONITOR READS SINUS RHYTHM HR 87. NO DISTRESS NOTED. IV ACCESS IN LEFT WRIST #22 RUNNING D5 1/2NS@100ML/HR AND LEFT AC #20 PATENT AND SALINE LOCKED. BED REMAINS LOW AND LOCKED, HOB ELEVATED IN SEMI FOWLERS, SIDE RAILS UP X3. CALL LIGHT WITHIN REACH. WILL ENDORSE TO NEXT SHIFT.
[2020-03-27 07:16] LABS: BASOPHILS % (AUTO) 0.2 % (0.0-2.0); EOSINOPHILS % (AUTO) 0.7 % (0.0-6.0); HEMATOCRIT 25 % (33-45); HEMOGLOBIN 7.7 g/dL (11.5-14.8); LYMPHOCYTES % (AUTO) 14.5 % (20.0-44.0); MEAN CORPUSCULAR HGB CONC 31 g/dl (31.0-36.0); MEAN CORPUSCULAR VOLUME 97 fL (82-100); MONOCYTES # (AUTO) 0.6 /CMM (0.1-1.30); MONOCYTES % (AUTO) 4.4 % (2.0-12.0); NEUTROPHILS # (AUTO) 11.1 /CMM (1.8-8.9); NEUTROPHILS % (AUTO) 80.2 % (43.0-81.0); PLATELET COUNT (AUTO) 106 /CMM (150-450); RED BLOOD CELL COUNT(AUTO) 2.61 MIL/uL (4.0-5.2); WHITE BLOOD COUNT (AUTO) 13.9 K/uL (4.3-11.0)
[2020-03-27 07:51] LABS: CALCIUM, SERUM 8.7 mg/dL (8.5-10.1); CARBON DIOXIDE 26 mmol/L (21-32); CREATININE 2.3 mg/dL (0.6-1.3); GLUCOSE 212 mg/dL (74-106); MAGNESIUM 2.9 mg/dL (1.8-2.4); UREA NITROGEN, BLOOD 71 mg/dL (7-18)
--- NOTE | 2020-03-27 08:15 | NUR ---
LINE TENDER FLAKEBOARD NOTES RECEIVED LAB RESULTS FROM LAB C/O BASSAM NA: 164 AND CL: 128, DR. NIETO MADE AWARE AND THAT PATIENT IS ON D5 1/2 NS WITH NNO AT THIS TIME.
[2020-03-27 08:16] LABS: CHLORIDE 128 mmol/L (98-107); SODIUM SERUM 164 mmol/L (136-145)
[2020-03-27] MEDS: TIMOLOL MAL/DORZOLAM HCL OPHTH 10 ML BOTTLE EACHEYE SCH ×2 (09:58→17:00)
--- NOTE | 2020-03-27 10:08 | NUR ---
ATTENDANT SALES NOTES PATIENT SEEN BY ST, FAILED SWALLOW EVAL.
--- NOTE | 2020-03-27 10:20 | NUR ---
WIRE WHEELER NOTE INSERTED NGT, PATIENT BUTCH WELL.
--- NOTE | 2020-03-27 10:33 | NUR ---
WOUND CARE CONSULT: REVIEWED CHART, NURSING DOCUMENTATION AND PHOTOS WHICH INDICATE STAGE 3 ULCER TO RT BUTTOCK AND INTACT DEEP TISSUE INJURY TO LEFT HEEL, PRESENT ON ADMISSION. RECOMMENDATIONS MADE FOR SKIN PROTECTION AND WOUND CARE. DISCUSSED WITH NURSING STAFF. RECOMMEND SURGICAL CONSULT. DR REGINO FERNANDES NOTIFIED OF CONSULT REQUEST. MD IN AGREEMENT WITH PLAN OF CARE.
[2020-03-27] MEDS ORDERED: HYDROGEL DRESSING 90 GM TUBE TP PRN (11:00)
--- NOTE | 2020-03-27 11:03 | NUR ---
Lead Systems Architect consult requested by Rianna Lester MD because patient score is greater than 3. Per nursing notes, patient is non-verbal and only reports to name. This SW called Luke Jesus [address] [place], [place] [address] [address] asking about patient family or responsible alliance party. Per Eleonora, there is no family or responsible alliance party for this patient. SW to remain available for all needs regarding this patient.
[2020-03-27] MEDS: HYDROGEL DRESSING 90 GM TUBE TP SCH (12:08)
--- NOTE | 2020-03-27 12:15 | NUR ---
SNUFF BOX FINISHER NOTES CALLED RADIOLOGY AND SPOKE TO BASSAM, PER BASSAM HE SPOKE WITH RADIOLOGIST REGARDING NGT PLACEMENT AND SAID THAT IT LOOKS GOOD, IN PLACE.
[2020-03-27] MEDS ORDERED: INFLUENZA VACCINE 2020-21 0.5 ML DISP.SYRIN IM ONE (14:00)
--- NOTE | 2020-03-27 18:55 | NUR ---
PAY STATION DEPARTMENT MANAGER NOTES PATIENT RESTING COMFORTABLY N BED. ALERT AND ORIENTED X2. HOB ELEVATED. NO SOB. REMAIN ON O2 AT 2L.MIN VIA NC BUTCH WELL. REMAIN ON TELEMONITORING SR: 89. LEFT WIRST # 22 INTACT AND PATENT INFUSING D 5 1.2 NS AT 100ML/HR BUTCH WELL. NGT INTACT AND PATENT WITH PLACEMENT CHECK DONE VIA AUSCULTATION. BED IN LOWEST POSITION ,LOCKED. BED ALARM ON.
--- NOTE | 2020-03-27 19:30 | NUR ---
TRAFFIC I MANAGER OPENING NOTE RECEIVED PATIENT IN BED. NONVERBAL. ON OXYGEN 2L/MIN VIA NASAL CANNULA. RESPIRATIONS ARE EVEN AND UNLABORED. NO S/S SOB NOTED. RIGHT NARE NG TUBE, RESIDUAL 10CC BLACK FLUID. EXTERNAL TELE MONITOR READS SINUS RHYTHM HR 78. NO DISTRESS. IV ACCESS IN LEFT WRIST #22 RUNNING D5 1/2NS@100ML/HR AND LEFT AC #20 PATENT AND SALINE LOCKED. BED IS LOW AND LOCKED, HOB ELEVATED IN SEMI FOWLERS, SIDE RAILS UP X3. CALL LIGHT WITHIN REACH. WILL CONTINUE TO MONITOR.
[2020-03-27] MEDS: ENOXAPARIN SODIUM 30 MG/0.3 ML DISP.SYRIN SQ SCH (20:00)
[2020-03-27] MEDS: LATANOPROST EYE DROP 0.005% 2.5 ML BOTTLE EACHEYE SCH (22:22)
--- NOTE | 2020-03-27 22:30 | NUR ---
telephonic rn note informed dr. langley patient has lovenox 30mg scheduled and h/h is 7.7 /25. telephone order ok to hold. order read back noted and carried out. will continue to monitor.
--- NOTE | 2020-03-27 22:45 | NUR ---
teleradiologist note - transfer patient is covid negative. transferred patient to room 310 with medication, belongings and chart. transfer care to Abby RN. patient remains nonverbal, opens eyes to pain and touch. patient on oxygen 2l/min via nasal cannula. no resp distress. iv access in left wrist gauge 22. no distress.
--- NOTE | 2020-03-27 23:09 | NUR ---
PATIENT TRANSFERRED FROM MED SURG 2 (COVID NEGATIVE 03/26/20) Patient non verbal, scream when turn and repositioned, baseline per report. Right buttock and left heel pressure injury noted. Presence of NGT in right nare, NPO. Bedside report given by RAS Winter. Fall; skin precaution maintained.
[2020-03-28] MEDS: IV D5/0.45 NACL 1,000 ML IV SCH ×3 (02:34→22:06)
--- NOTE | 2020-03-28 04:56 | NUR ---
NO IV PERIPHERAL LINE Left AC peripheral line leaking, removed line. Attempted to re insert new IV peripheral line unsuccessful. Another attempt by Ed, RN still unsuccessful Notified Dr. Lester with new order placed. MIDLINE in am.
--- NOTE | 2020-03-28 05:07 | NUR ---
IVF HELD MIDLINE insertion to follow, RAS Adams/Wily de la rosa informed and approved insertion. IVF not infusing at this time.
--- NOTE | 2020-03-28 06:57 | NUR ---
MS RN: END OF SHIFT REPORT Patient in bed. Tolerating Oxygen at 2L NC. Sodium still elevated, Nephro following. Plan for MIDLINE insertion today. Right Nare NGT, Dietary consult for tube feeding. Fall; Skin precaution maintained. Will endorse to oncoming RN.
--- NOTE | 2020-03-28 07:30 | NUR ---
MS/RN OPENING NOTE Received patient resting in bed, non-verbal but moans upon verbal and tactile stimulation. Breathing even and non-labored on 2L oxygen via NC. No respiratory or cardiac distress noted. No IV access noted, ordered midline per night court magistrate nurse. NG tube in place on the right nare, patent and intact. Sensation from all peripheral extremities noted. Bed locked to its lowest position, side rails x 2 up, bed alarm on, call light in hand. Will continue current plan of care.
[2020-03-28 08:00] VITALS: BP 100/56
[2020-03-28] MEDS: HYDROGEL DRESSING 90 GM TUBE TP SCH (10:05)
[2020-03-28] MEDS: TIMOLOL MAL/DORZOLAM HCL OPHTH 10 ML BOTTLE EACHEYE SCH ×2 (10:05→17:15)
[2020-03-28 11:12] LABS: BASOPHILS % (AUTO) 0.2 % (0.0-2.0); EOSINOPHILS % (AUTO) 0.9 % (0.0-6.0); HEMATOCRIT 27 % (33-45); HEMOGLOBIN 8.3 g/dL (11.5-14.8); LYMPHOCYTES # (AUTO) 1.3 /CMM (0.8-4.8); LYMPHOCYTES % (AUTO) 11.5 % (20.0-44.0); MEAN CORPUSCULAR HGB CONC 30 g/dl (31.0-36.0); MEAN CORPUSCULAR VOLUME 99 fL (82-100); MONOCYTES # (AUTO) 0.5 /CMM (0.1-1.30); MONOCYTES % (AUTO) 4.7 % (2.0-12.0); NEUTROPHILS # (AUTO) 9.1 /CMM (1.8-8.9); NEUTROPHILS % (AUTO) 82.7 % (43.0-81.0); PLATELET COUNT (AUTO) 102 /CMM (150-450); RED BLOOD CELL COUNT(AUTO) 2.75 MIL/uL (4.0-5.2)
[2020-03-28 11:22] LABS: CALCIUM, SERUM 8.9 mg/dL (8.5-10.1); CARBON DIOXIDE 25 mmol/L (21-32); GLUCOSE 162 mg/dL (74-106); POTASSIUM 4.1 mmol/L (3.5-5.1); UREA NITROGEN, BLOOD 59 mg/dL (7-18)
[2020-03-28 11:40] LABS: CHLORIDE 129 mmol/L (98-107); SODIUM SERUM 164 mmol/L (136-145)
--- NOTE | 2020-03-28 11:45 | NUR ---
MS/RN NOTE Paged Dr. Grimaldo at [facility] for pt's critical lab values reported: Na 164, Cl - 129. Awaiting for orders.
--- NOTE | 2020-03-28 12:00 | NUR ---
MS/RN NOTES Reached Dr. Grimaldo regarding critical lab values, states to continue following orders: Free 30 cc of water flush every 4 hrs, run jevity 1.2 @15 ml/hr to increase to 30 ml/hr as tolerated, and to start D5 1/2 NS @ 100 ml/hr as soon as midline is placed. Orders carried out. Will continue to monitor patient for any changes of condition.
[2020-03-28] MEDS: JEVITY 1.2 CAL 1,000 ML BOTTLE NG PRN (12:21)
[2020-03-28 16:00] VITALS: BP 103/65
--- NOTE | 2020-03-28 18:42 | NUR ---
MS/RN CLOSING NOTE Patient sleepin in bed, non-verbal but moans and opens eyes upon verbal and tactile stimulation. Breathing even and non-labored on 2L oxygen via NC. No respiratory or cardiac distress noted. CHRISTINA midline noted, patent and intact, and running D51/2 NS @ 100 ml/hr. NG tube in place on the right nare, patent and intact, running Jevity 1.2 @ 25 ml/hr, no gastric residual noted. Sensation from all peripheral extremities noted. Fall precautions maintained. Will endorse to career development consultant nurse.
[2020-03-28 20:00] VITALS: BP 128/50
--- NOTE | 2020-03-28 20:00 | NUR ---
MS/RN OPENING NOTES RECEIVED PATIENT IN BED, ALERT TO SELF, CAN RESPOND WITH NOD BUT REQUIRE EXTENSIVE ASSISTANCE IN ALL ADLS, ON NG TUBE, WITH FEEDING TO BE CLARIFIED WITH DIETARY PER MD,PATIENT LEFT ARMS AND LEGS SWOLLEN, TO MONITOR FOR ANY CHANGES, SKIN WARM TO TOUCH, FREE WATER FLUSH AT 250 ML PER 4 HOURS, INCONTINENT AND WITH D5 1/2 NS AT 100 ML/HR, BED LOCKED, CALL LIGHTS WITHIN REACH WILL MONITOR.RECEIVED ENDORSEMENT FROM AM RN FOR SELINA.
[2020-03-28] MEDS: ENOXAPARIN SODIUM 30 MG/0.3 ML DISP.SYRIN SQ SCH (20:41)
[2020-03-28] MEDS: LATANOPROST EYE DROP 0.005% 2.5 ML BOTTLE EACHEYE SCH (22:05)
--- NOTE | 2020-03-29 06:54 | NUR ---
310-1MS/RN NOTES PATIENT ALERT TO SELF, ON OXYGEN VIA NC, HOB ELEVATED, ATTENDED ALL NEEDS, FLUSHED NGTUBE AND KEEP PATENT, KEPT SKIN DRY AND INTACT, REPOSITION, OFF LOAD EXTREMITIES. BED LOCKED, CALL LIGHTS WITHIN REACH, WILL ENDORSE TO AM RN FOR SELINA,
--- NOTE | 2020-03-29 07:53 | NUR ---
MS RN NOTES PATIENT RECEIVED IN BED, RESPONSIVE WITH MOANING WHEN AWAKEN BY NAME. ON NASAL CANNULA 2 LITERS WITH NO SIGNS OF RESPIRATORY DISTRESS AT THIS TIME, WITH EVEN NON-LABORED BREATHING. IV ACCESS INTACT AND PATENT ON RIGHT UPPER MIDLINE. PATIENT PRESENTS WITH NO PAIN OR DISCOMFORT AT THIS TIME. SAFETY PRECAUTIONS IMPLEMENTED WITH BED LOCKED, BED ALARM ON, BED IN THE LOWEST POSITION, BILATERAL SIDE RAILS UP AND CALL LIGHT WITHIN EASY REACH OF THE PATIENT. WILL CONTINUE TO MONITOR PATIENT.
[2020-03-29 08:00] VITALS: BP 102/56
[2020-03-29] MEDS: IV D5/0.45 NACL 1,000 ML IV SCH ×2 (08:11→17:43)
[2020-03-29] MEDS: HYDROGEL DRESSING 90 GM TUBE TP SCH (08:12)
[2020-03-29] MEDS: TIMOLOL MAL/DORZOLAM HCL OPHTH 10 ML BOTTLE EACHEYE SCH ×2 (08:12→17:47)
--- NOTE | 2020-03-29 09:30 | NUR ---
MS RN NOTES CALLED NAVID ENGLE, , REGARDING PATIENT'S IMMUNIZATION OF FLU AND PNEUMONIA VACCINE, SPOKE TO YAHAIRA MCGINNIS, AND STATES PATIENT RECEIVED FLU VACCINE AND WILL RECEIVE PNEUMONIA VACCINE WHEN DISCHARGED FROM HOSPITAL.
[2020-03-29 10:34] LABS: BASOPHILS % (AUTO) 0.4 % (0.0-2.0); EOSINOPHILS % (AUTO) 1.5 % (0.0-6.0); HEMATOCRIT 23 % (33-45); LYMPHOCYTES # (AUTO) 1.5 /CMM (0.8-4.8); LYMPHOCYTES % (AUTO) 15.3 % (20.0-44.0); MEAN CORPUSCULAR HGB CONC 30 g/dl (31.0-36.0); MEAN CORPUSCULAR VOLUME 100 fL (82-100); MONOCYTES % (AUTO) 10.4 % (2.0-12.0); NEUTROPHILS # (AUTO) 7.2 /CMM (1.8-8.9); NEUTROPHILS % (AUTO) 72.4 % (43.0-81.0); PLATELET COUNT (AUTO) 93 /CMM (150-450); RED BLOOD CELL COUNT(AUTO) 2.26 MIL/uL (4.0-5.2)
[2020-03-29 10:48] LABS: HEMOGLOBIN 6.8 g/dL (11.5-14.8)
[2020-03-29 11:06] LABS: LYMPHOCYTES % (MANUAL) 17 % (16-48); MONOCYTES % (MANUAL) 7 % (0-11.0); NEUTROPHILS % (MANUAL) 76 (42-76)
[2020-03-29 11:44] LABS: CALCIUM, SERUM 8.4 mg/dL (8.5-10.1); CARBON DIOXIDE 22 mmol/L (21-32); CHLORIDE 124 mmol/L (98-107); CREATININE 1.8 mg/dL (0.6-1.3); GLUCOSE 217 mg/dL (74-106); POTASSIUM 3.9 mmol/L (3.5-5.1); UREA NITROGEN, BLOOD 48 mg/dL (7-18)
[2020-03-29 11:51] LABS: SODIUM SERUM 159 mmol/L (136-145)
[2020-03-29 12:02] LABS: HEMOGLOBIN 7.1 g/dL (11.5-14.8)
--- NOTE | 2020-03-29 13:36 | NUR ---
MS RN NOTES INFORMED DR NIETO ABOUT PATIENT'S HEMOGLOBIN 6.8 AND HEMATOCRIT 23 LEVELS, INFORMED STAT H/H WAS DONE AND Hgb 7.1 and HEMATOCRIT 23. NO SIGNS OF BLEEDING, NO NEW ORDERS AT THIS TIME. WILL CONTINUE TO MONITOR PATIENT.
[2020-03-29 15:54] LABS: IRON, SERUM 26 ug/dl (50-175); TOTAL IRON BINDING CAPACITY 121 ug/dl (250-450)
[2020-03-29 16:00] VITALS: BP 109/66
[2020-03-29 17:08] LABS: FERRITIN 2286 ng/mL (8-388)
--- NOTE | 2020-03-29 18:45 | NUR ---
MS RN NOTES PATIENT IN BED SLEEPING COMFORTABLY, AWAKEN BY NAME, ON NASAL CANNULA 2 LITERS, WITH NO SIGNS OF RESPIRATORY DISTRESS, WITH EVEN NON-LABORED BREATHING AND NO SOB NOTED AT THIS TIME. PATIENT PRESENT WITH NO PAIN OR DISCOMFORT AT THIS TIME. IV ACCESS INTACT AND PATENT ON RIGHT UPPER ARM MIDLINE. NASOGASTRIC TUBE INTACT AND PATENT INFUSING JEVITY 1.2 TOLERATED, NO RESIDUAL NOTED. MET ALL OF PATIENT'S NEEDS. SAFETY PRECAUTIONS IMPLEMENTED WITH BED LOCKED, BED ALARM ON, BED IN THE LOWEST POSITION, BILATERAL SIDE RAILS UP AND CALL LIGHT WITHIN EASY REACH OF THE PATIENT. WILL ENDORSE PLAN OF CARE TO UPCOMING RN.
[2020-03-29] MEDS: ENOXAPARIN SODIUM 30 MG/0.3 ML DISP.SYRIN SQ SCH (19:52)
--- NOTE | 2020-03-29 19:52 | NUR ---
MS RN NOTE: Hold Lovenox due to decreased H and H and decreased platelet count. Will continue to monitor.
[2020-03-29 20:00] VITALS: BP 117/66
--- NOTE | 2020-03-29 20:10 | NUR ---
MS RN OPENING NOTE: Patient in bed awake and watching TV. Patient AOx1, able to respond when name is called. Patient NPO. NGTube is in place on right nare. NG tube patent and feeding Jevity 1.2. Right upper arm midline noted, dressing dry and intact, patent, no redness, or infiltration, infusing D5 1/2NS @ 100mL/hr. Safety precaution is in place, bed is in the lowest level, bed is locked, alarm is on, side rails x2 are up, and call light is within reach. Will continue to monitor.
[2020-03-29 20:29] VITALS: BP 117/68
[2020-03-29] MEDS: LATANOPROST EYE DROP 0.005% 2.5 ML BOTTLE EACHEYE SCH (21:51)
[2020-03-30] MEDS: IV D5/0.45 NACL 1,000 ML IV SCH (04:41)
[2020-03-30 06:41] LABS: BASOPHILS % (AUTO) 0.2 % (0.0-2.0); EOSINOPHILS % (AUTO) 1.2 % (0.0-6.0); HEMATOCRIT 24 % (33-45); HEMOGLOBIN 7.4 g/dL (11.5-14.8); LYMPHOCYTES # (AUTO) 1.3 /CMM (0.8-4.8); LYMPHOCYTES % (AUTO) 14.2 % (20.0-44.0); MEAN CORPUSCULAR HGB CONC 31 g/dl (31.0-36.0); MEAN CORPUSCULAR VOLUME 97 fL (82-100); MONOCYTES # (AUTO) 0.5 /CMM (0.1-1.30); MONOCYTES % (AUTO) 5.6 % (2.0-12.0); NEUTROPHILS # (AUTO) 7.2 /CMM (1.8-8.9); NEUTROPHILS % (AUTO) 78.8 % (43.0-81.0); PLATELET COUNT (AUTO) 90 /CMM (150-450); RED BLOOD CELL COUNT(AUTO) 2.47 MIL/uL (4.0-5.2); WHITE BLOOD COUNT (AUTO) 9.2 K/uL (4.3-11.0)
[2020-03-30 07:15] LABS: CALCIUM, SERUM 8.3 mg/dL (8.5-10.1); CARBON DIOXIDE 27 mmol/L (21-32); CHLORIDE 125 mmol/L (98-107); CREATININE 1.5 mg/dL (0.6-1.3); GLUCOSE 167 mg/dL (74-106); UREA NITROGEN, BLOOD 36 mg/dL (7-18)
--- NOTE | 2020-03-30 07:30 | NUR ---
RN OPENING NOTE RECEIVED PATIENT IN BED SLEEPING COMFORTABLY, AWAKEN BY NAME, ON NASAL CANNULA 2 LITERS, WITH NO SIGNS OF RESPIRATORY DISTRESS, WITH EVEN NON-LABORED BREATHING AND NO SOB NOTED AT THIS TIME. PATIENT PRESENT WITH NO PAIN OR DISCOMFORT AT THIS TIME. IV ACCESS INTACT AND PATENT ON RIGHT UPPER ARM MIDLINE. NASOGASTRIC TUBE INTACT AND PATENT INFUSING JEVITY 1.2 TOLERATED, NO RESIDUAL NOTED. MET ALL OF PATIENT'S NEEDS. SAFETY PRECAUTIONS IMPLEMENTED WITH BED LOCKED, BED ALARM ON, BED IN THE LOWEST POSITION, BILATERAL SIDE RAILS UP AND CALL LIGHT WITHIN EASY REACH OF THE PATIENT.
[2020-03-30 07:31] LABS: SODIUM SERUM 158 mmol/L (136-145)
[2020-03-30 08:00] VITALS: BP 124/69
--- NOTE | 2020-03-30 08:04 | NUR ---
MS RN CLOSING NOTE: Patient in bed. No SOB or respiratory distress noted. All needs were met. Safety precaution maintained, bed is in the lowest level, bed is locked, alarm is on, side rails x2 are up, and call light is within reach. Endorsed to AM nurse.
[2020-03-30] MEDS: HYDROGEL DRESSING 90 GM TUBE TP SCH (08:27)
[2020-03-30] MEDS: TIMOLOL MAL/DORZOLAM HCL OPHTH 10 ML BOTTLE EACHEYE SCH ×2 (08:27→16:26)
[2020-03-30] MEDS ORDERED: IV D5/0.45 NACL 1,000 ML IV PRN (09:30)
--- NOTE | 2020-03-30 11:30 | NUR ---
SODIUM LEVEL CRITICAL LAB REPORTED. SODIUM IS 158. DR. NIETO MADE AWARE. NO NEW ORDERS GIVEN.
[2020-03-30] MEDS: IV D5W 1,000 ML IV PRN (13:12)
[2020-03-30 16:00] VITALS: BP 119/58
--- NOTE | 2020-03-30 18:41 | NUR ---
RN CLOSING NOTES PATIENT IN BED SLEEPING COMFORTABLY, AWAKEN BY NAME, ON NASAL CANNULA 2 LITERS, WITH NO SIGNS OF RESPIRATORY DISTRESS, WITH EVEN NON-LABORED BREATHING AND NO SOB NOTED AT THIS TIME. PATIENT PRESENT WITH NO PAIN OR DISCOMFORT AT THIS TIME. IV ACCESS INTACT AND PATENT ON RIGHT UPPER ARM MIDLINE. NASOGASTRIC TUBE INTACT AND PATENT INFUSING JEVITY 1.2 TOLERATED, NO RESIDUAL NOTED. ALL NEEDS MET AND ATTENDED. ALL DUE MEDS ADMINISTERED. NO ASE NOTED. SAFETY PRECAUTIONS IMPLEMENTED WITH BED LOCKED, BED ALARM ON, BED IN THE LOWEST POSITION, BILATERAL SIDE RAILS UP AND CALL LIGHT WITHIN EASY REACH OF THE PATIENT.
--- NOTE | 2020-03-30 19:24 | NUR ---
MS RN OPENING NOTE: Patient in bed sleeping comfortably. Patient shows no signs of pain or discomfort. Patient breathing on 2L Oxygen via nasal canula. No SOB or acute respiratory distress noted. Noted NGT feeding inserted on right nare. Auscultated placement, is in place. Noted right upper arm midline, dressing dry and intact, patent, no redness, or infiltration. Safety precaution is in place, bed is in the lowest level, bed is locked, alarm is on, side rails x2 are up, and call light is within reach. Will continue to monitor.
[2020-03-30] MEDS: ENOXAPARIN SODIUM 30 MG/0.3 ML DISP.SYRIN SQ SCH (19:38)
--- NOTE | 2020-03-30 19:39 | NUR ---
MS RN NOTE: Held Lovenox due to decreased H/H and platelet count.
[2020-03-30 19:51] VITALS: BP 128/66
[2020-03-30 20:00] VITALS: BP 129/66
[2020-03-30] MEDS: LATANOPROST EYE DROP 0.005% 2.5 ML BOTTLE EACHEYE SCH (21:44)
[2020-03-31] MEDS: IV D5W 1,000 ML IV PRN (02:16)
--- NOTE | 2020-03-31 06:47 | NUR ---
MS RN CLOSING NOTE: Patient in bed. No SOB or respiratory distress noted. All needs were met. Safety precaution maintained, bed is in the lowest level, bed is locked, alarm is on, side rails x2 are up, and call light is within reach. Will endorse to AM nurse.
[2020-03-31 06:58] LABS: CALCIUM, SERUM 7.9 mg/dL (8.5-10.1); CARBON DIOXIDE 22 mmol/L (21-32); CHLORIDE 119 mmol/L (98-107); CREATININE 1.4 mg/dL (0.6-1.3); GLUCOSE 225 mg/dL (74-106); POTASSIUM 3.9 mmol/L (3.5-5.1); SODIUM SERUM 149 mmol/L (136-145); UREA NITROGEN, BLOOD 28 mg/dL (7-18)
--- NOTE | 2020-03-31 07:35 | NUR ---
MS RN NOTE: Could not obtain consent. Patient has no family or next of kin. Endorse to Am nurse.
[2020-03-31 08:00] VITALS: BP 122/60
[2020-03-31 09:04] LABS: BASOPHILS % (AUTO) 0.1 % (0.0-2.0); EOSINOPHILS % (AUTO) 1.1 % (0.0-6.0); HEMATOCRIT 23 % (33-45); HEMOGLOBIN 7.1 g/dL (11.5-14.8); LYMPHOCYTES # (AUTO) 1.4 /CMM (0.8-4.8); LYMPHOCYTES % (AUTO) 14.2 % (20.0-44.0); MEAN CORPUSCULAR HGB CONC 31 g/dl (31.0-36.0); MEAN CORPUSCULAR VOLUME 97 fL (82-100); MONOCYTES # (AUTO) 0.6 /CMM (0.1-1.30); MONOCYTES % (AUTO) 6.2 % (2.0-12.0); NEUTROPHILS # (AUTO) 7.7 /CMM (1.8-8.9); NEUTROPHILS % (AUTO) 78.4 % (43.0-81.0); PLATELET COUNT (AUTO) 85 /CMM (150-450); RED BLOOD CELL COUNT(AUTO) 2.33 MIL/uL (4.0-5.2); WHITE BLOOD COUNT (AUTO) 9.8 K/uL (4.3-11.0)
[2020-03-31] MEDS: HYDROGEL DRESSING 90 GM TUBE TP SCH (09:07)
[2020-03-31] MEDS: TIMOLOL MAL/DORZOLAM HCL OPHTH 10 ML BOTTLE EACHEYE SCH ×2 (09:08→16:45)
[2020-03-31] MEDS ORDERED: LIDOCAINE 1%-EPI 1:100,000 20 ML VIAL TP ONE (13:30)
[2020-03-31] MEDS ORDERED: SILVER NITRATE APPLICATOR 1 EA BOX TP ONE (13:30)
[2020-03-31 16:00] VITALS: BP 116/54
--- NOTE | 2020-03-31 18:48 | NUR ---
RN CLOSING NOTES PATIENT IN STABLE CONDITION. ALL NEEDS ATTENDED AND PROVIDED. ALL DUE MEDICATIONS GIVEN ORDERED. WOUND CARE RENDERED. TURNED AND REPOSITIONED PATIENT EVERY 2HRS AND NEEDED. KEPT PATIENT SKIN CLEAN AND DRY. SAFETY MEASURES IN PLACE. BED IN LOW/LOCKED POSITION, SIDERAILS UP, CALL LIGHT IN REACH. WILL ENDORSE ACCORDINGLY.
--- NOTE | 2020-03-31 19:39 | NUR ---
MS RN NOTES PATIENT IN BED, OPENS EYES, ALERT AND ORIENTED 1. BREATHING EVEN AND UNLABORED ON 2L NC. SHOWS NO SIGNS OF ACUTE RESPIRATORY DISTRESS, NO ACUTE PAIN. R NARE NG TUBE, FLUSHED WITH AIR TO CHECK FOR PLACEMENT. RUNNING JEVITY AT 15ML/HR. CHRISTINA MIDLINE RUNNING D5W AT 100ML/HR. SHOWS NO SIGNS OF INFILTRATION, NO REDNESS. SAFETY PRECAUTIONS IN PLACE. BED IN LOWEST POSITION, LOCKED, AND CALL LIGHT KEPT WITHIN REACH. WILL CONTINUE TO MONITOR.
[2020-03-31 20:00] VITALS: BP 119/66
[2020-03-31] MEDS: ENOXAPARIN SODIUM 30 MG/0.3 ML DISP.SYRIN SQ SCH (20:00)
[2020-03-31 20:35] VITALS: BP 119/66
--- NOTE | 2020-03-31 20:37 | NUR ---
MS RN NOTES HELD LOVENOX DUE AT 1999 D/T LOW H/H 7.07/11. WILL CONTINUE TO MONITOR.
[2020-03-31] MEDS: LATANOPROST EYE DROP 0.005% 2.5 ML BOTTLE EACHEYE SCH (21:24)
--- NOTE | 2020-03-31 22:24 | NUR ---
MS RN NOTES GIVEN TYLENOL PRN FOR FEVER 99.9 AT 2124. AFTER 1 HOUR ADMINISTRATION RECHECK TEMP OF 98.9, WILL CONTINUE COOLING MEASURE.
[2020-04-01] MEDS: IV D5W 1,000 ML IV PRN ×2 (02:12→16:55)
[2020-04-01] MEDS: JEVITY 1.2 CAL 1,000 ML BOTTLE NG PRN (02:52)
--- NOTE | 2020-04-01 06:40 | NUR ---
MS RN NOTES PATIENT IN BED, OPENS EYES, ALERT AND ORIENTED 1. BREATHING EVEN AND UNLABORED ON 2L NC. SHOWS NO SIGNS OF ACUTE RESPIRATORY DISTRESS, NO ACUTE PAIN. R NARE NG TUBE, RUNNING JEVITY AT 50ML/HR. 5ML RESIDUAL. CHRISTINA MIDLINE RUNNING D5W AT 100ML/HR. SHOWS NO SIGNS OF INFILTRATION, NO REDNESS. ALL DUE MEDICATION GIVEN. ALL NEEDS ATTENDED TO. SAFETY PRECAUTIONS IN PLACE. BED IN LOWEST POSITION, LOCKED, AND CALL LIGHT KEPT WITHIN REACH. WILL ENDORSE TO ONCOMING NURSE.
--- NOTE | 2020-04-01 07:28 | NUR ---
MS RN NOTES PATIENT RECEIVED IN BED RESTING COMFORTABLY, ALERT AND ORIENTED X 1. ON NASAL CANNULA, TOLERATING 2 LITERS, WITH NO SIGNS OF RESPIRATORY DISTRESS AT THIS TIME, WITH EVEN NON-LABORED BREATHING, AND NO SIGNS OF SOB NOTED. PATIENT NASOGASTRIC TUBE IN PLACE, INFUSING JEVITY 1.2. RIGHT UPPER ARM MIDLINE IN PLACE, INFUSING IV FLUIDS. PATIENT PRESENTING WITH NO PAIN OR DISCOMFORT AT THIS TIME, NO APPARENT DISTRESS PRESENT. SAFETY PRECAUTIONS IMPLEMENTED WITH BED LOCKED, BED IN THE LOWEST POSITION, BILATERAL SIDE RAILS UP, BED ALARM ON, AND CALL LIGHT WITHIN EASY REACH OF THE PATIENT. WILL CONTINUE TO MONITOR.
[2020-04-01 08:00] VITALS: BP 108/52
[2020-04-01] MEDS: TIMOLOL MAL/DORZOLAM HCL OPHTH 10 ML BOTTLE EACHEYE SCH ×2 (08:30→16:56)
[2020-04-01] MEDS: HYDROGEL DRESSING 90 GM TUBE TP SCH (08:30)
--- NOTE | 2020-04-01 10:35 | NUR ---
MS RN NOTES CALLED NAVID ENGLE, , REGARDING IF PATIENT HAS FAMILY, PERSON TO NOTIFY OR A CONSERVATOR; ANY CONTACT INFORMATION. [facility] NUMBER , DUE TO [facility] [employer] AND CASE MANAGEMENT IN MEETING. WILL FOLLOW UP.
--- NOTE | 2020-04-01 13:00 | NUR ---
MS RN NOTES PATIENT HAS NO FAMILYOR PERSON TO NOTIFY, AND NO CONSERVATOR, SPOKE TO DR. SANDERSON AND WILL SIGN FOR CONSENT FORM FOR PEG PLACEMENT ON 04/02/2020. CHARGE NURSE MADE AWARE. WILL CONTINUE TO MONITOR PATIENT AT THIS TIME.
[2020-04-01 16:01] VITALS: BP 121/82
--- NOTE | 2020-04-01 18:45 | NUR ---
MS RN NOTES PATIENT IN BED RESTING COMFORTABLY, ALERT AND ORIENTED X 1, ON NASAL CANNULA 2 LITERS, WITH NO SIGNS OF RESPIRATORY DISTRESS, WITH EVEN NON-LABORED BREATHING AND NO SOB NOTED AT THIS TIME. PATIENT PRESENT WITH NO PAIN OR DISCOMFORT AT THIS TIME. IV ACCESS INTACT AND PATENT ON RIGHT UPPER ARM MIDLINE INFUSING IV FLUIDS D5 AT 100ml/hr. NASOGASTRIC TUBE INTACT AND PATENT INFUSING JEVITY 1.2 50 ml/hr, NO RESIDUAL NOTED. MET ALL OF PATIENT'S NEEDS. SAFETY PRECAUTIONS IMPLEMENTED WITH BED LOCKED, BED ALARM ON, BED IN THE LOWEST POSITION, BILATERAL SIDE RAILS UP AND CALL LIGHT WITHIN EASY REACH OF THE PATIENT. WILL ENDORSE PLAN OF CARE TO UPCOMING RN.
[2020-04-01 19:00] VITALS: BP 115/65
--- NOTE | 2020-04-01 19:30 | NUR ---
MS RN NOTES RECEIVED ON BED WITH HIB ELEVATED,A/O X1,ALERT TO NAME.WITH NGT FEEDING OF JEVITY AT 50ML/HR RATE.IVF D5W 100ML/HR RATE INFUSINF WELL ON RIGHT UPPER ARM MIDLINE VIA IV PUMP.DVT PUMP IN USED AND ON LOVENOX SQ FOR VTE SCORE OF 5.WILL REPOSITION PER PROTOCOL.WILL CONTINUE TO MONITOR STATUS.
[2020-04-01 20:00] VITALS: BP 115/65
[2020-04-01] MEDS: ENOXAPARIN SODIUM 30 MG/0.3 ML DISP.SYRIN SQ SCH (20:00)
[2020-04-01] MEDS: LATANOPROST EYE DROP 0.005% 2.5 ML BOTTLE EACHEYE SCH (21:18)
--- NOTE | 2020-04-02 01:00 | NUR ---
MS RN NOTES NGT FEEDING HOLD THIS TIME FOR PEG PLACEMENT THIS MORNING BY DR VIN MANZO.CONSENT ON CHART.SALINE LOCK REMAINS PATENT, WITH IVF INFUSING.
[2020-04-02] MEDS: IV D5W 1,000 ML IV PRN ×2 (02:56→17:08)
[2020-04-02] MEDS ORDERED: ANESTHESIA TRAY IN PYXIS 1 EA TRAY MC ONE (06:19)
[2020-04-02 06:22] LABS: BASOPHILS # (AUTO) 0.1 /CMM (0.0-0.2); BASOPHILS % (AUTO) 0.7 % (0.0-2.0); EOSINOPHILS % (AUTO) 1.4 % (0.0-6.0); HEMATOCRIT 23 % (33-45); HEMOGLOBIN 7.4 g/dL (11.5-14.8); LYMPHOCYTES # (AUTO) 1.5 /CMM (0.8-4.8); LYMPHOCYTES % (AUTO) 16.1 % (20.0-44.0); MEAN CORPUSCULAR HGB CONC 32 g/dl (31.0-36.0); MEAN CORPUSCULAR VOLUME 95 fL (82-100); MONOCYTES # (AUTO) 0.6 /CMM (0.1-1.30); MONOCYTES % (AUTO) 6.8 % (2.0-12.0); NEUTROPHILS # (AUTO) 6.8 /CMM (1.8-8.9); PLATELET COUNT (AUTO) 108 /CMM (150-450); RED BLOOD CELL COUNT(AUTO) 2.45 MIL/uL (4.0-5.2); WHITE BLOOD COUNT (AUTO) 9.1 K/uL (4.3-11.0)
--- NOTE | 2020-04-02 06:30 | NUR ---
MS RN NOTES [employer] FOR PEG PLACEMENT THIS TIME BY BED.VITAL SIGNS STABLE.
[2020-04-02 06:41] LABS: CALCIUM, SERUM 8.1 mg/dL (8.5-10.1); CREATININE 1.1 mg/dL (0.6-1.3); POTASSIUM 4.6 mmol/L (3.5-5.1)
[2020-04-02] MEDS: HYDROGEL DRESSING 90 GM TUBE TP SCH (09:15)
[2020-04-02] MEDS: TIMOLOL MAL/DORZOLAM HCL OPHTH 10 ML BOTTLE EACHEYE SCH ×2 (09:16→17:52)
--- NOTE | 2020-04-02 10:19 | NUR ---
0815 Patient back from PEG placement. Patient alert, oriented x1. Responsive to stimuli. Abdominal binder in place. Patient with orders to "start feeding tomorrow morning and to use PEG for water and meds today 4 hours." Noted and carried out. No s/s of distress or discomfort noted, no c/o pain. VS WNL. HOB elevated as tolerated for aspiration precaution. Fall precautions observed. Assisted patient with turning and repositioning as tolerated and as needed. Needs anticipated and attended. Call light within reach. Will continue to monitor patient.
[2020-04-02 16:00] VITALS: BP 126/65
[2020-04-02] MEDS: LATANOPROST EYE DROP 0.005% 2.5 ML BOTTLE EACHEYE SCH (17:45)
--- NOTE | 2020-04-02 18:16 | NUR ---
Closing Notes: Patient in bed alert, eyes closed but easily arousable, responsive to stimuli. Patient in no s/s of distress or discomfort, no SOB, no c/o pain, no facial grimacing or moaning noted. Patient turned and repositioned every 2 hours and as needed. Skin kept clean and dry. Needs anticipated and attended. Fall precautions observed. Call light within reach. Will endorse continuity of care to next shift.
[2020-04-02] MEDS ORDERED: JEVITY 1.2 CAL 1,000 ML BOTTLE NG PRN (18:27)
--- NOTE | 2020-04-02 19:30 | NUR ---
MS RN NOTES ON BED AWAKE,NON VERBAL,OPEN EYES,IVF D5W AT 100ML/HR RATE INFUSING WELL ON RIGHT UPPER ARM MIDLINE VIA IV PUMP.S/P PEG PLACEMENT TODAY BY DR BANUELSO,GT FEEDING TO START TOMORROW MORNING,GT FLUSHING WITH WATER TODAY.HOB ELEVATED.WILL REPOSITION PER PROTOCOL.WILL CONTINUE TO I STATUS.
[2020-04-02 20:00] VITALS: BP 108/58
[2020-04-02] MEDS: ENOXAPARIN SODIUM 30 MG/0.3 ML DISP.SYRIN SQ SCH (20:16)
[2020-04-03] VITALS: BP 153/61
[2020-04-03] MEDS: IV D5W 1,000 ML IV PRN (03:10)
[2020-04-03 04:00] VITALS: BP 157/85
--- NOTE | 2020-04-03 04:00 | NUR ---
MS RN NOTES MORNING CARE RENDERED,AND REPOSITIONED GT FEEDING TO START THIS MORNING CARE TOLERATED WELL.IN NO ACUTE DISTRESS,ALL NEEDS ATTENDED.
--- NOTE | 2020-04-03 07:49 | NUR ---
RN Opening Note Received patient in bed sleeping, awake and oriented x1, able to responds physical stimuli, patient s/p peg from yesterday and will start g tube feeding. Respiratory even and unlabored with oxygen at 2LPM, O2sat 98%, no distress observed. Keep locked bed with elevated HOB for ensure airway and aspiration precaution, and lowest position for safety. Call light within reach, will continue to monitor.
[2020-04-03 08:10] VITALS: BP 122/71
[2020-04-03] MEDS: TIMOLOL MAL/DORZOLAM HCL OPHTH 10 ML BOTTLE EACHEYE SCH (08:25)
[2020-04-03] MEDS: HYDROGEL DRESSING 90 GM TUBE TP SCH (08:26)
[2020-04-03] MEDS ORDERED: INFLUENZA VACCINE 2020-21 0.5 ML DISP.SYRIN IM ONE (11:00)
[2020-04-03 16:00] VITALS: BP 98/54
--- NOTE | 2020-04-03 17:30 | NUR ---
Patient discharge to [facility], given report Sherry/RAS. 2 label maker picked up patient, pt tolerated g tube feeding, in stable condition.
== END 2020-04-03 18:06 | DRG 622 ==
LOC: ER 19:53 → MEDSG2 21:34 → TELE2 21:50 → MED 03-27 22:49
PROVIDERS: ADMIT Internal Medicine; ATTEND Internal Medicine
PROC: 05HB33Z Insertion of Infusion Device into Right Basilic Vein, Percutaneous Approach (ICD-10-PCS; principal; 2020-03-28)
PROC: 0JB90ZZ Excision of Buttock Subcutaneous Tissue and Fascia, Open Approach (ICD-10-PCS; 2020-03-31)
PROC: 0DH63UZ Insertion of Feeding Device into Stomach, Percutaneous Approach (ICD-10-PCS; 2020-04-02)
DX: E86.1 Hypovolemia (principal); N17.0 Acute kidney failure with tubular necrosis; L89.313 Pressure ulcer of right buttock, stage 3; E43 Unspecified severe protein-calorie malnutrition; G92 Toxic encephalopathy; E87.0 Hyperosmolality and hypernatremia; E87.2 Acidosis; K29.70 Gastritis, unspecified, without bleeding; F03.90 Unspecified dementia, unspecified severity, without behavioral disturbance, psychotic disturbance, mood disturbance, and anxiety; J44.9 Chronic obstructive pulmonary disease, unspecified; R13.10 Dysphagia, unspecified; F29 Unspecified psychosis not due to a substance or known physiological condition; K21.9 Gastro-esophageal reflux disease without esophagitis; M19.90 Unspecified osteoarthritis, unspecified site; D64.9 Anemia, unspecified; Z79.899 Other long term (current) drug therapy; D50.9 Iron deficiency anemia, unspecified; D69.6 Thrombocytopenia, unspecified; N13.9 Obstructive and reflux uropathy, unspecified
CPT/HCPCS: 36415; 43246; 70450-TC; 71045-TC; 74018; 80048-TC; 80076-TC; 80164-TC; 81000-TC; 82728-TC; 82962-TC; 83540-TC; 83735-TC; 84100-TC; 85025-TC; 85027-TC; 85610-TC; 87081-TC; 92526; 92611-TC; A6248; G0378; J1650; J3490; J7030; J7070; Q2036; U0003